=== PATIENT | female | born 1990 | race African-American/Black ===

== ENCOUNTER 2023-10-10 08:38 | Emergency (ER) | payer SELFPAY ==
[~2023-10-10] VITALS: Ht 165.1 cm; Wt 102.0 kg
[2023-10-10 08:40] VITALS: O2SAT 98
[2023-10-10 09:14] LABS: BASOPHILS % 1.1 % (0.0-2.0); DIFFERENTIAL COMMENT 0; EOSINOPHILS % 0.9 % (0.0-5.0); HEMATOCRIT. 34.1 % (36.0-48.0); HEMOGLOBIN. 11.1 g/dL (12.0-16.0); LYMPHOCYTES % 10.3 % (20.0-50.0); MEAN CORPUSCULAR HEMOGLOBIN 25.1 pg (28.0-32.0); MEAN CORPUSCULAR HGB CONC 32.6 g/dL (31.0-37.0); MEAN PLATELET VOLUME 9.1 fl (7.4-10.4); MONOCYTES % 4.6 % (2.0-8.0); NEUTROPHILS % 83.1 % (40.0-76.0); PLATELET 376 x1000/uL (130-400); RED BLOOD CELL COUNT 4.43 mill/uL (4.2-5.4); RED CELL DISTRIBUTION WIDTH 18.8 % (11.6-14.6)
[2023-10-10 09:23] LABS: CHLORIDE 107 mEq/L (98-107); POTASSIUM 4.1 mEq/L (3.5-5.1); SODIUM 137 mEq/L (136-145)
[2023-10-10 09:24] LABS: CALCIUM 9.2 mg/dL (8.7-10.4); CARBON DIOXIDE 23 mEq/L (21-32)
[2023-10-10 09:27] LABS: HCG SCREEN NEGATIVE
[2023-10-10 09:29] LABS: CREATININE 0.7 mg/dL (0.6-1.0); GLUCOSE 94 mg/dL (70-105); UREA NITROGEN BLOOD 12 mg/dL (9-23)
[2023-10-10] MEDS: DICYCLOMINE 10 MG/5 ML ORAL SYR PO STA (09:29)
[2023-10-10] MEDS: MAGNESIUM/ALUMINUM HYDROXIDE/SIMETHICONE 30ML UDC PO STA (09:29)
[2023-10-10] MEDS: FAMOTIDINE 20MG TABLET PO ONE (09:29)
[2023-10-10] MEDS: ONDANSETRON 4MG ODT PO STA (09:29)
[2023-10-10 09:31] LABS: ALANINE AMINOTRANSFERASE 12 IU/L (10-49); ALBUMIN 4.4 g/dL (3.2-4.8); ASPARTATE AMINOTRANSFERASE 21 IU/L (<34); BILIRUBIN DIRECT 0.2 mg/dL (<=3.0); BILIRUBIN TOTAL 0.6 mg/dL (0.1-1.0); PROTEIN TOTAL 7.4 g/dL (6.0-8.3)
[2023-10-10 09:39] LABS: ETHANOL BLOOD < 10 mg/dL (<10)
[2023-10-10] MEDS ORDERED: FAMO-135 MT (11:38)
[2023-10-10 12:06] VITALS: BP 122/78; PULSE 76; RESP 18; TEMP 98.5
== END 2023-10-10 12:09 | disposition home or self-care (01) ==
LOC: ER 08:47
DX: K29.70 Gastritis, unspecified, without bleeding (principal)
CPT/HCPCS: 80076; 80048; 80320; 84703; 83690; 85025; 36415; 99284; Q0162; Z7610; C1893; G0480